=== PATIENT | female | born 1945 | race Caucasian/White ===

== ENCOUNTER 2017-12-09 07:37 | Day surgery (SDC) | payer MEDICARE, BC ==
[~2017-12-09 07:37] MED LIST: LIDOCAINE HCL 1% MPF SOL ONE; PROPOFOL 500 MG/50 ML EMU IV ONE
[2017-12-09 07:54] VITALS: TEMP 98.4
[2017-12-09 09:49] VITALS: RESP 20
[2017-12-09 09:58] VITALS: BP 116/64; PULSE 66; O2SAT 97
== END 2017-12-09 10:12 | disposition home or self-care (01) | DRG 951 ==
LOC: SURG 07:37
PROVIDERS: ATTEND Internal Medicine Gastroenterology
DX: Z12.11 Encounter for screening for malignant neoplasm of colon (principal); R15.9 Full incontinence of feces; K59.00 Constipation, unspecified; R10.30 Lower abdominal pain, unspecified; Z86.010 Personal history of colon polyps; R19.7 Diarrhea, unspecified; K64.4 Residual hemorrhoidal skin tags; K64.8 Other hemorrhoids; K63.5 Polyp of colon
CPT/HCPCS: J2001; J2704

== ENCOUNTER 2018-05-07 08:16 | Outpatient (CLI) | payer MEDICARE, BC ==
[2017-12-09 09:58] VITALS: O2SAT 97
== END 2018-05-07 08:17 | disposition home or self-care (01) | DRG 558 ==
LOC: CONVCARE 08:16
PROVIDERS: ATTEND Orthopaedic Surgery
DX: M65.311 Trigger thumb, right thumb (principal); M06.9 Rheumatoid arthritis, unspecified
CPT/HCPCS: 73140